=== PATIENT | male | born 1970 | race American Indian/Alaskan Native ===

== ENCOUNTER 2019-06-13 19:56 | Emergency (ER) | payer SELFPAY ==
--- NOTE | 2019-06-13 20:31 | EDM.PDOC ---
ED HPI GENERAL MEDICAL PROBLEM - General Chief Complaint: Upper Extremity Injury/Pain Stated Complaint: RIGHT WRIST INJURY HURT ON 06/10 Time Seen by Provider: 06/13/19 20:11 Source of Information: Reports: Patient, RN Notes Reviewed History Limitations: Reports: No Limitations - History of Present Illness INITIAL COMMENTS - FREE TEXT/NARRATIVE: Patient is a 48-year-old male who presents to the ED for the evaluation of a right wrist injury. Patient notes that he fell last weekend, and landed up falling on all fours. He states that he caught himself kind of awkwardly on his right wrist. He noted that he thought that he had maybe a closed fist that he caught himself with. He denies any pain or swelling and to his left wrist. He has had increasing swelling and pain in to the right wrist. He has been watching the pain at home, and has not really sought much for care. There is quite a bit of marked swelling noted to his right wrist. 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 He has not taken any sort of ibuprofen or Tylenol at home, and he states he iced this once. He states is not super painful, however he gets flashes of pain. He denies any pain into the elbow, or numbness or tingling into the fingers. He notes he is right-hand dominant. Right Wrist Pain Score (Numeric/FACES): 5 - Related Data Allergies Allergy/AdvReac Type Severity Reaction Status Date / Time No Known Allergies Allergy Verified 06/13/19 20:17 Home Meds: Home Meds . [No Known Home Meds] 06/13/19 [History] Past Medical History - Past Health History Medical/Surgical History: Denies Medical/Surgical History Social & Family History - Tobacco Use Smoking Status *Q: Never Smoker - Caffeine Use Caffeine Use: Reports: Coffee Review of Systems - Review of Systems Review Of Systems: ROS reveals no pertinent complaints other than HPI. Musculoskeletal: Reports: Joint Pain (Right wrist), Joint Swelling (R wrist) Skin: Reports: No Symptoms Neurological: Denies: Numbness, Tingling ED EXAM, GENERAL - Physical Exam Exam: See Below Exam Limited By: No Limitations General Appearance: Alert, WD/WN, No Apparent Distress Eye Exam: Bilateral Eye: EOMI Respiratory/Chest: No Respiratory Distress, Lungs Clear, Normal Breath Sounds, No Accessory Muscle Use, Chest Non-Tender Cardiovascular: Normal Peripheral Pulses, Regular Rate, Rhythm, No Murmur Peripheral Pulses: 3+: Radial (L), Radial (R) Extremities: Non-Tender, Normal Capillary Refill, Joint Swelling (Marked swelling to Right), Limited Range of Motion (of R wrist d/t swelling and pain.) Neurological: Alert, Oriented, Normal Cognition, No Motor/Sensory Deficits Psychiatric: Normal Affect, Normal Mood Skin Exam: Warm, Dry, Intact, Normal Color, No Rash ED TRAUMA EXTREMITY PROCEDURES - Splinting Right Upper Extremity Splint Site: right wrist Pre-Procedure NV Status: Normal Post-Procedure NV Status: Normal Splint Material: Fiberglass Splint Design: Gutter (ulnar gutter) Applied & Form Fitted By: Provider Provider Post-Splint Application NV Check: NV Status Normal, Good Position Complications: No Course - Vital Signs Last Recorded V/S: Last Vital Signs Temp 98.2 F 06/13/19 20:14 Pulse 92 06/13/19 20:14 Resp 18 06/13/19 20:14 BP 146/98 H 06/13/19 20:14 Pulse Ox 97 06/13/19 20:14 - Orders/Labs/Meds Orders: Active Orders 24 hr Category Date Time Status Wrist Comp Min 3V Rt [CR] Stat Exams 06/13/19 20:18 Taken DME for Discharge [COMM] Routine Oth 06/13/19 21:14 Ordered - Re-Assessments/Exams Free Text/Narrative Re-Assessment/Exam: 06/13/19 20:32 Patient presents to the ED for evaluation of a right wrist injury. There is quite a bit of swelling around the wrist. Otherwise range of motion appears to be within normal limits, he denies any noted tingling distal to the extremity. I did order right wrist x-rays for further evaluation. Departure - Departure Time of Disposition: 21:08 Disposition: Home, Self-Care 01 Condition: Fair Clinical Impression: Radius distal fracture Qualifiers: Encounter type: initial encounter Fracture type: closed Fracture morphology: other fracture Laterality: right Qualified Code(s): S52.591A - Other fractures of lower end of right radius, initial encounter for closed fracture - Discharge Information *PRESCRIPTION DRUG MONITORING PROGRAM REVIEWED*: No *COPY OF PRESCRIPTION DRUG MONITORING REPORT IN PATIENT JOSE: No Instructions: Forearm Fracture, [id number] Referrals: PCP,None [Primary Care Provider] - Forms: ED Department Discharge, ED Return to Work/School Form Additional Instructions: You have been evaluated in the ED for your right wrist injury. Your x-ray demonstrated that you did break your distal radius. This will need surgical management for fixation, although this is not an emergent matter. You may follow-up with orthopedics for further management. Recommend calling their offices tomorrow seeking an appointment tomorrow or either Monday. Please use ice as tolerated to the affected area. You may take Tylenol 500 mg or ibuprofen 600mg q6 hrs for pain relief. Please do so until you have a tolerable level of pain with activity. Do not exceed 4000mg tylenol, Do not exceed 3200mg ibuprofen in a 24 hour time period. Please call Ortho for follow-up and further evaluation Dr. Barcenas is our orthopedic surgeon, his office number is [phone]. Please call and set up an appointment as soon as possible for further management. If Dr. Barcenas is not available, you may call the [facility] in [place], at [phone], or [facility] in [place] I did speak with a Dr. Estevez at [facility], he states you can call [phone] Barcenas is not available to fix your arm. Please return to ED if your symptoms should change or worsen. - My Orders Last 24 Hours: My Active Orders 06/13/19 20:18 Wrist Comp Min 3V Rt [CR] Stat 06/13/19 21:14 DME for Discharge [COMM] Routine - Assessment/Plan Last 24 Hours: My Active Orders 06/13/19 20:18 Wrist Comp Min 3V Rt [CR] Stat 06/13/19 21:14 DME for Discharge [COMM] Routine
--- NOTE | 2019-06-14 07:22 | CR ---
Right wrist: Four views were obtained of the distal right radius. Comminuted fracture is identified within the distal radius involving the metaphysis. Distal fragments are displaced posteriorly up to 8 mm. Very minimal avulsion fracture off the ulnar styloid process is seen. Bony structures are osteopenic. Old healed fracture deformity is noted within the 4th metacarpal. Impression: 1. Displaced and mildly comminuted distal right radial fracture. 2. Minimal avulsion fracture within the ulnar styloid process. Diagnostic code #3
== END 2019-06-13 21:34 | disposition home or self-care (01) ==
LOC: JD.ED 19:56
DX: S52.501A Unspecified fracture of the lower end of right radius, initial encounter for closed fracture (principal); S52.611A Displaced fracture of right ulna styloid process, initial encounter for closed fracture; W19.XXXA Unspecified fall, initial encounter
CPT/HCPCS: 29105; 73110-26-RT; 73110-RT; 99283-25

== ENCOUNTER 2019-06-20 10:52 | Day surgery (SDC) | payer BC, OTHER ==
[~2019-06-20 10:52] MED LIST: Lidocaine 1%/Sod Bicarbonate in NS 8.4% 1 ML Syringe IDERM PRN; Sodium Chloride 0.9% 10 ML Syringe FLUSH PRN
[2019-06-20] MEDS: Lactated Ringers 1,000 ML IV SCH ×2 (11:25→11:26)
[2019-06-20] MEDS ORDERED: ceFAZolin 1 GM Vial ONE ×2 (11:30→12:08)
[2019-06-20] MEDS ORDERED: Lactated Ringers 1,000 ML ONE (11:30)
[2019-06-20] MEDS ORDERED: Lidocaine 1% 4 ML ONE (11:30)
[2019-06-20] MEDS ORDERED: Ondansetron 4 MG/2 ML SDV ONE (11:30)
[2019-06-20] MEDS ORDERED: Propofol 200 MG/20 ML SDV ONE ×2 (11:31→11:48)
[2019-06-20] MEDS ORDERED: Ketorolac 30 MG/ML SDV ONE (11:31)
[2019-06-20] MEDS ORDERED: Midazolam 1 MG/ML 2 ML SDV ONE (11:31)
[2019-06-20] MEDS ORDERED: fentaNYL 250 MCG/5 ML SDV ONE (11:31)
[2019-06-20] MEDS ORDERED: Dexamethasone 4 MG/ML 5 ML MDV ONE (11:31)
--- NOTE | 2019-06-20 11:38 | PCM.PREANE ---
Preanesthetic Assessment - Anesthesia/Transfusion/Family Hx Anesthesia History: Prior Anesthesia Without Reaction Family History of Anesthesia Reaction: No Transfusion History: No Prior Transfusion(s) - Review of Systems General: No Symptoms Pulmonary: No Symptoms Cardiovascular: No Symptoms Gastrointestinal: No Symptoms Neurological: No Symptoms Other: Reports: None - Physical Assessment Vital Signs: Last Vital Signs Temp 97.8 F 06/20/19 11:05 Pulse 88 06/20/19 11:05 Resp 16 06/20/19 11:05 BP 138/91 H 06/20/19 11:05 Pulse Ox 96 06/20/19 11:05 Height: 1.85 m Weight: 141.521 kg ASA Class: 2 Mental Status: Alert & Oriented x3 Airway Class: Mallampati = 4 (possibly difficult airway) Dentition: Reports: Broken Tooth/Teeth Thyro-Mental Finger Breadths: 3 Mouth Opening Finger Breadths: 3 Cardiovascular: Regular Rate, Regular Rhythm - Lab Values: Laboratory Last Values MRSA (PCR) Negative 06/17/19 12:14 - Allergies Allergies/Adverse Reactions: Allergies Allergy/AdvReac Type Severity Reaction Status Date / Time No Known Allergies Allergy Verified 06/19/19 12:17 - Acknowledgements Anesthesia Type Planned: General Anesthesia, Regional Block Pt an Appropriate Candidate for the Planned Anesthesia: Yes Alternatives and Risks of Anesthesia Discussed w Pt/Guardian: Yes Pt/Guardian Understands and Agrees with Anesthesia Plan: Yes PreAnesthesia Questionnaire - Past Health History Medical/Surgical History: Denies Medical/Surgical History - SUBSTANCE USE Smoking Status *Q: Former Smoker Recreational Drug Use History: No - HOME MEDS Home Medications: Home Meds traMADol [Ultram] 50 - 100 mg PO Q6H PRN #30 tab 06/20/19 [Rx] - CURRENT (IN HOUSE) MEDS Current Meds: Current Medications Lactated Ringer's (Ringers, Lactated) 1,000 mls @ 125 mls/hr IV ASDIRECTED TANK Stop: 06/20/19 23:00 Last Admin: 06/20/19 11:26 Dose: 125 mls/hr Lidocaine/Sodium Bicarbonate (Buffered Lidocaine 1% In Ns 8.4%) 0.25 ml IDERM ONETIME PRN PRN Reason: Prior to IV Start Stop: 06/20/19 18:00 Last Admin: 06/20/19 11:25 Dose: 0.25 ml Sodium Chloride (Saline Flush) 10 ml FLUSH ASDIRECTED PRN PRN Reason: Keep Vein Open Stop: 06/20/19 18:00
[2019-06-20] MEDS ORDERED: Succinylcholine/Normal Saline 100 MG/5 ML Syringe ONE (11:49)
[2019-06-20] MEDS ORDERED: Bupivacaine 0.25% 10 ML SDV ONE (12:20)
[2019-06-20] MEDS ORDERED: HYDROmorphone 0.5 MG/0.5 ML Syringe ONE (13:43)
[2019-06-20] MEDS ORDERED: fentaNYL 100 MCG/2 ML SDV IVPUSH PRN (14:07)
[2019-06-20] MEDS ORDERED: HYDROmorphone 0.5 MG/0.5 ML Syringe IVPUSH PRN (14:07)
[2019-06-20] MEDS ORDERED: Ondansetron 4 MG/2 ML SDV IVPUSH PRN (14:07)
--- NOTE | 2019-06-20 14:52 | PCM.POSTAN ---
POST ANESTHESIA ASSESSMENT - MENTAL STATUS Mental Status: Alert, Oriented - VITAL SIGNS Vital Signs: Last Vital Signs Temp 36.6 C 06/20/19 11:05 Pulse 88 06/20/19 11:05 Resp 16 06/20/19 11:05 BP 138/91 H 06/20/19 11:05 Pulse Ox 96 06/20/19 11:05 - RESPIRATORY Respiratory Status: Respiratory Rate WNL, Airway Patent, O2 Saturation Stable - CARDIOVASCULAR CV Status: Pulse Rate WNL, Blood Pressure Stable - GASTROINTESTINAL GI Status: No Symptoms - PAIN Pain Score: 0 - POST OP HYDRATION Hydration Status: Adequate & Stable
[2019-06-20] MEDS ORDERED: traMADol 50 MG Tab PO PRN ×2 (14:58→15:14)
--- NOTE | 2019-06-20 15:01 | CR ---
Right wrist: Eleven fluoroscopic spot views of the right wrist were obtained. Comparison: Previous right wrist study of 06/13/19. Findings: Study shows previous right wrist fracture. There is reduction and fixation with plate and screws. Fluoroscopy time is given as 32.2 seconds. Impression: 1. Procedural study as noted above. Diagnostic code #2
--- NOTE | 2019-06-20 15:26 | PCM48HPAN ---
Post Anesthesia Note - EVALUATION WITHIN 48HRS OF ANESTHETIC Vital Signs in Normal Range: Yes Patient Participated in Evaluation: Yes Respiratory Function Stable: Yes Airway Patent: Yes Cardiovascular Function Stable: Yes Hydration Status Stable: Yes Pain Control Satisfactory: Yes Nausea and Vomiting Control Satisfactory: Yes Mental Status Recovered: Yes Vital Signs: Last Vital Signs Temp 36.6 C 06/20/19 11:05 Pulse 88 06/20/19 11:05 Resp 16 06/20/19 11:05 BP 138/91 H 06/20/19 11:05 Pulse Ox 96 06/20/19 11:05
--- NOTE | 2019-06-24 06:57 | PCM.OPNOTE ---
- General Post-Op/Procedure Note Date of Surgery/Procedure: 06/20/19 Operative Procedure(s): open reduction internal fixation of left distal radius fracture Pre Op Diagnosis: extraarticular dispaced left distal radius fracture Post-Op Diagnosis: Same Anesthesia Technique: General LMA, Local Primary Surgeon: Bay Barcenas Anesthesia Provider: Indira Boston Work Study Student: Savanna Wells EBL in mLs: 5 Complications: None Condition: Good
--- NOTE | 2019-06-24 07:27 | OR ---
DATE OF OPERATION: 06/20/2019 SURGEON: Bay Barcenas MD OPERATION PERFORMED: Open reduction and internal fixation of left distal radius fracture two-part. PREOPERATIVE DIAGNOSIS: Extra-articular displaced left distal radius fracture. POSTOPERATIVE DIAGNOSIS: Extra-articular displaced left distal radius fracture. ANESTHESIA: General LMA with local. ANESTHESIA PROVIDER: Indira Boston CRNA PRE K LEAD TEACHER: Savanna Wells PA-C ESTIMATED BLOOD LOSS: 5 mL. COMPLICATIONS: None. CONDITION: Stable. DESCRIPTION OF PROCEDURE: The patient was identified in the preop holding area. Proper site was marked and identified by the surgeon. The patient was taken back to operating theater, where after adequate anesthesia, the patient's left upper extremity had a nonsterile tourniquet applied and then was sterilely prepped and draped in the usual sterile fashion. OR time-out was performed. The patient received 2 g of IV Ancef. Left upper extremity was then exsanguinated and tourniquet was insufflated to 220 mmHg. Standard volar approach of Jeison was done. This was taken down to the FCR tendon. The tendon sheath was then opened. The tendon was mobilized and was retracted to protect the neurovascular bundles. At this time, the floor of the tendon sheath was opened and the pronator quadratus was elevated off the distal radius. The fracture site was identified and a curette and rongeur were used to remove fracture hematoma and old scar tissue. It was noted to be significantly displaced and a Tatum elevator and a Mackey Elevator were utilized to mobilize the distal fragment, reduced in place, a guide pin was placed through the radial tuberosity and then was pinned in place with showing near anatomic reduction. An intermediate Flaco volar locking plate was then placed under direct C-arm fluoroscopy showing to be in adequate position. At this time, a nonlocking screw was placed distally and it was found to be in good position. The plate was adhered to the distal fragment with no step-off. At this time, 4 more locking screws were placed distally and were found to have adequate purchase and fixation. Working proximally then, I placed 4 nonlocking screws proximally which adhered to plate proximally with no step-off. The patient was noted to have anatomic reduction. The DRUJ was stable. At this time, adequate saline was irrigated through the wound, and final fluoroscopy films showed anatomic reduction with methodist of the radial height and the volar tilt. 3-0 Vicryl was used subcutaneously. Monocryl was used for closure of the subcuticular layer. The patient had Dermabond applied and a sterile soft dressing and a volar slab splint. He tolerated the procedure well and was sent to PACU in stable condition. KAMILLE /[id number]
== END 2019-06-20 16:52 | disposition home or self-care (01) ==
LOC: JD.SDS 10:52
PROVIDERS: ATTEND Orthopaedic Surgery
DX: S52.552A Other extraarticular fracture of lower end of left radius, initial encounter for closed fracture (principal); E66.01 Morbid (severe) obesity due to excess calories; W19.XXXA Unspecified fall, initial encounter; Z68.41 Body mass index [BMI] 40.0-44.9, adult; Z87.891 Personal history of nicotine dependence
CPT/HCPCS: 25607; 36415; 76000; 80053; 87641; 93005; A9270; J0330; J0690; J1100; J1170; J1885; J2001; J2250; J2405; J2704; J3010; J3490; J7120; 01830; C1713; C1776